=== PATIENT | male | born 1955 | race African-American/Black ===

== ENCOUNTER 2022-06-08 10:46 | Outpatient (CLI) | payer MEDICARE | END 2022-06-08 10:47 | disposition home or self-care (01) | LOC: CSHMRI 10:46 | PROVIDERS: ATTEND Surgery | DX: M51.26 Other intervertebral disc displacement, lumbar region (principal); M48.062 Spinal stenosis, lumbar region with neurogenic claudication; M47.816 Spondylosis without myelopathy or radiculopathy, lumbar region; Z98.890 Other specified postprocedural states; M51.86 Other intervertebral disc disorders, lumbar region | CPT/HCPCS: 72100; 72148 ==